=== PATIENT | female | born 1950 | race Caucasian/White ===

== ENCOUNTER → 2019-06-16 | Outpatient (CLI) | payer OTHER ==
[2019-06-16 13:53] LABS: CREATININE 0.9 mg/dL (0.6-1.0)
== END ==
LOC: MRI 09:37
PROVIDERS: Psychiatry & Neurology Neurology
DX: M47.814 Spondylosis without myelopathy or radiculopathy, thoracic region (principal); M51.14 Intervertebral disc disorders with radiculopathy, thoracic region; M25.78 Osteophyte, vertebrae; M51.24 Other intervertebral disc displacement, thoracic region; M12.88 Other specific arthropathies, not elsewhere classified, other specified site; M43.14 Spondylolisthesis, thoracic region; R20.2 Paresthesia of skin; R29.2 Abnormal reflex; Z88.8 Allergy status to other drugs, medicaments and biological substances

== ENCOUNTER → 2019-07-23 | Outpatient (CLI) | payer OTHER | LOC: MRI 11:59 | DX: M47.26 Other spondylosis with radiculopathy, lumbar region (principal); M51.16 Intervertebral disc disorders with radiculopathy, lumbar region; M48.07 Spinal stenosis, lumbosacral region ==